=== PATIENT | male | born 1975 | race Caucasian/White ===

== ENCOUNTER → 2017-09-26 | Outpatient (REF) | payer BC ==
[2017-09-26 20:39] LABS: HEMATOCRIT 49.1 % (42.0-52.0); HEMOGLOBIN 16.7 g/dl (14.0-18.0); MEAN CORPUSCULAR HEMOGLOBIN 29.8 pg (27.0-33.0); MEAN CORPUSCULAR VOLUME 87.7 fl (80.0-96.0); PLATELET COUNT, AUTOMATED 187 10^3/uL (150-450); RED CELL DISTRIBUTION WIDTH 11.9 % (11.5-14.5); WHITE BLOOD COUNT 5.9 10^3/uL (4.0-10.0)
[2017-09-26 21:02] LABS: ALBUMIN 4.4 GM/DL (3.2-5.2); ALBUMIN/GLOBULIN RATIO 1.26 (1.00-1.93); ALKALINE PHOSPHATASE 69 U/L (45-117); ALT/SGPT 57 U/L (12-78); ANION GAP 5 MEQ/L (8-16); AST/SGOT 27 U/L (7-37); BILIRUBIN,TOTAL 1.8 MG/DL (0.2-1.0); BLOOD UREA NITROGEN 19 MG/DL (7-18); CALCIUM LEVEL 8.9 MG/DL (8.5-10.1); CARBON DIOXIDE LEVEL 32 MEQ/L (21-32); CHLORIDE LEVEL 105 MEQ/L (98-107); CHOLESTEROL LEVEL 226 MG/DL (<200); CHOLESTEROL RISK RATIO 7.062 (<5); CREATININE FOR GFR 1.02 MG/DL (0.70-1.30); GLOMERULAR FILTRATION RATE > 60.0 (>60); GLUCOSE, FASTING 82 MG/DL (70-105); HDL CHOLESTEROL 32 MG/DL (>40); LDL CHOLESTEROL 142.4 MG/DL (<100); NON-HDL-C 194 MG/DL; POTASSIUM SERUM 4.3 MEQ/L (3.5-5.1); RHEUMATOID FACTOR QUANT < 10.0 IU/ML (0-15.0); SODIUM LEVEL 142 MEQ/L (136-145); TOTAL PROTEIN 7.9 GM/DL (6.4-8.2); TRIGLYCERIDES LEVEL 258 MG/DL (<150)
[2017-09-26 21:08] LABS: ERYTHROCYTE SEDIMENTATION RATE 5 mm/hr (0-15)
[2017-09-30 00:07] LABS: ANTINUCLEAR ANTIBODIES DIRECT Negative (Negative); Lyme Disease IgG/IgM Antibodie <0.91 ISR (0.00-0.90); Lyme Disease IgM Ab Quantitati <0.80 index (0.00-0.79)
== END ==
LOC: M SFHCLERA 15:36
DX: M25.50 Pain in unspecified joint (principal); E78.2 Mixed hyperlipidemia
CPT/HCPCS: 80053

== ENCOUNTER → 2018-01-07 | Outpatient (REF) | payer BC, OTHER ==
[2018-01-07 16:57] LABS: ALBUMIN/GLOBULIN RATIO 1.14 (1.00-1.93); ALKALINE PHOSPHATASE 85 U/L (45-117); ALT/SGPT 77 U/L (12-78); ANION GAP 6 MEQ/L (8-16); AST/SGOT 28 U/L (7-37); BILIRUBIN,TOTAL 0.9 MG/DL (0.2-1.0); BLOOD UREA NITROGEN 13 MG/DL (7-18); CALCIUM LEVEL 8.5 MG/DL (8.5-10.1); CARBON DIOXIDE LEVEL 30 MEQ/L (21-32); CHLORIDE LEVEL 109 MEQ/L (98-107); CHOLESTEROL LEVEL 126 MG/DL (<200); CHOLESTEROL RISK RATIO 4.064 (<5); CREATININE FOR GFR 1.02 MG/DL (0.70-1.30); GLOMERULAR FILTRATION RATE > 60.0 (>60); GLUCOSE, FASTING 86 MG/DL (70-100); HDL CHOLESTEROL 31 MG/DL (>40); LDL CHOLESTEROL 71.4 MG/DL (<100); NON-HDL-C 95 MG/DL; POTASSIUM SERUM 4.2 MEQ/L (3.5-5.1); SODIUM LEVEL 145 MEQ/L (136-145); TOTAL PROTEIN 7.5 GM/DL (6.4-8.2); TRIGLYCERIDES LEVEL 118 MG/DL (<150)
== END ==
LOC: M SFHCLERA 11:51
DX: E78.2 Mixed hyperlipidemia (principal)
CPT/HCPCS: 80053

== ENCOUNTER → 2018-04-23 | Outpatient (CLI) | payer OTHER, BC ==
[2018-04-23 20:26] LABS: ALBUMIN 4.1 GM/DL (3.2-5.2); ALBUMIN/GLOBULIN RATIO 1.05 (1.00-1.93); ALKALINE PHOSPHATASE 87 U/L (45-117); ALT/SGPT 73 U/L (12-78); AST/SGOT 45 U/L (7-37); BILIRUBIN,DIRECT 0.3 MG/DL (0.0-0.2); BILIRUBIN,TOTAL 2.2 MG/DL (0.2-1.0); CHOLESTEROL LEVEL 149 MG/DL (<200); CHOLESTEROL RISK RATIO 4.806 (<5); HDL CHOLESTEROL 31 MG/DL (>40); LDL CHOLESTEROL 89.8 MG/DL (<100); NON-HDL-C 118 MG/DL; TRIGLYCERIDES LEVEL 141 MG/DL (<150)
== END ==
LOC: M LRY 14:40
DX: M25.552 Pain in left hip (principal); E78.2 Mixed hyperlipidemia
CPT/HCPCS: 80076

== ENCOUNTER → 2018-05-23 | Outpatient (CLI) | payer OTHER, BC | LOC: M RAD 13:15 | DX: M25.522 Pain in left elbow (principal) | CPT/HCPCS: 73221 ==

== ENCOUNTER → 2019-09-01 | Outpatient (REF) | payer OTHER ==
[2019-09-01 17:10] LABS: BASO % 0.6 % (0.0-1.0); EOS # 0.2 10^3/uL (0.0-0.5); EOS % 3.5 % (0.0-3.0); HEMATOCRIT 48.3 % (42.0-52.0); HEMOGLOBIN 16.2 g/dl (13.5-17.5); LYMPH # 1.4 10^3/uL (1.5-5.0); LYMPH % 29.1 % (24.0-44.0); MEAN CORPUSCULAR HEMOGLOBIN 29.3 pg (27.0-33.0); MEAN CORPUSCULAR HGB CONC 33.5 g/dl (32.0-36.5); MEAN CORPUSCULAR VOLUME 87.3 fl (80.0-96.0); MONO # 0.5 10^3/uL (0.0-0.8); MONO % 9.9 % (0.0-5.0); NEUTROPHILS # 2.7 10^3/uL (1.5-8.5); NEUTROPHILS % 56.3 % (36.0-66.0); PLATELET COUNT, AUTOMATED 178 10^3/uL (150-450); RED BLOOD COUNT 5.53 10^6/uL (4.30-6.10); WHITE BLOOD COUNT 4.9 10^3/uL (4.0-10.0)
[2019-09-01 21:51] LABS: ALT/SGPT 45 U/L (12-78); BILIRUBIN,TOTAL 1.2 MG/DL (0.2-1.0); BLOOD UREA NITROGEN 19 MG/DL (7-18); CALCIUM LEVEL 8.7 MG/DL (8.5-10.1); CARBON DIOXIDE LEVEL 29 MEQ/L (21-32); CHLORIDE LEVEL 107 MEQ/L (98-107); CHOLESTEROL LEVEL 177 MG/DL (<200); CHOLESTEROL RISK RATIO 6.103 (<5); CREATININE FOR GFR 1.12 MG/DL (0.70-1.30); GLOMERULAR FILTRATION RATE > 60.0 (>60); GLUCOSE, FASTING 95 MG/DL (70-100); HDL CHOLESTEROL 29 MG/DL (>40); LDL CHOLESTEROL 98 MG/DL (<100); NON-HDL-C 148 MG/DL; SODIUM LEVEL 140 MEQ/L (136-145); TOTAL PROTEIN 7.5 GM/DL (6.4-8.2); TRIGLYCERIDES LEVEL 251 MG/DL (<150)
== END ==
LOC: M SFHCLERA 11:00
PROVIDERS: ATTEND Family Medicine
DX: E78.2 Mixed hyperlipidemia (principal); R11.0 Nausea

== ENCOUNTER → 2021-01-23 | Outpatient (CLI) | payer OTHER | LOC: M SLEEP HO 12:22 | PROVIDERS: ATTEND Physician Assistant | DX: R40.0 Somnolence (principal) ==

== ENCOUNTER → 2021-01-24 | Outpatient (CLI) | payer OTHER ==
--- NOTE | 2021-01-24 09:56 | REP ---
INDICATION: NAUSEA/VOMITING COMPARISON: None. TECHNIQUE: Real time edwards scale ultrasound examination using curved array transducer. FINDINGS: Liver is heterogeneous and hyperechoic suggesting fatty infiltration with areas of focal fatty sparing. No focal hepatic lesion identified. Pancreas appears normal. The gallbladder is normal and without gallstones, wall thickening, or pericholecystic fluid. No biliary ductal dilatation is appreciated and the common bile duct measures 4.8 mm diameter. Right kidney is normal in reniform shape without hydronephrosis and measures 12.3 x 5.8 x 4.7 cm. No ascites in the visualized right upper quadrant. Visualized abdominal aorta appears normal. IMPRESSION: Hepatosteatosis. <Electronically signed by Shalom Medley > 01/24/21 [id number]
== END ==
LOC: M RAD 09:09
PROVIDERS: ATTEND Internal Medicine Gastroenterology
DX: R11.2 Nausea with vomiting, unspecified (principal)

== ENCOUNTER → 2021-06-06 | Outpatient (CLI) | payer OTHER ==
[~2021-06-06] MED LIST: ATOR1TAB21 PO; BUSP5TA PO; HYDR50TA70 PO; OMEP40CA4 PO; PROAAER10 INH; VITMTA PO
--- NOTE | 2021-06-06 11:47 | REP ---
INDICATION: OTH SPECIFIED DISEASES OF GALL BLADDER. COMPARISON: None. TECHNIQUE/RADIOTRACER AND DOSE: After the intravenous administration of 6.6 mCi of technetium 99 M Choletec hepatobiliary imaging was performed with gallbladder ejection fraction calculation. FINDINGS: There is symmetric distribution of the radiotracer throughout the hepatocytes. The gallbladder is visualized at 45 minutes. Biliary to bowel transit is within normal limits. The gallbladder ejection fraction calculation is 57% which is within normal limits. IMPRESSION: Within normal limits <Electronically signed by Alin Dinero > 06/06/21 [id number]
== END ==
LOC: M RAD 09:13
PROVIDERS: ATTEND Internal Medicine Gastroenterology
DX: K82.8 Other specified diseases of gallbladder (principal)
CPT/HCPCS: 78227; A9537

== ENCOUNTER → 2021-06-16 | Outpatient (CLI) | payer OTHER | LOC: M LABSMTC 10:06 | PROVIDERS: ATTEND Anesthesiology | DX: Z01.812 Encounter for preprocedural laboratory examination (principal); Z20.822 Contact with and (suspected) exposure to COVID-19 ==

== ENCOUNTER 2021-06-21 12:00 | Day surgery (SDC) | payer OTHER ==
[~2021-06-21] VITALS: Ht 180.3 cm; Wt 94.3 kg
[~2021-06-21 12:00] MED LIST changes: +LIDOCAINE 2% 100MG/5ML SDV (FOR ANES.) As Ordered ONE; +NS 1,000 ML IV ONE; +fentaNYL 100 MCG/2 ML INJECTION (J3010) As Ordered ONE; +propofoL 500 MG/50 ML VIAL As Ordered ONE
--- NOTE | 2021-06-21 13:47 | ROOR ---
Patient Name: Avinash Dinh Procedure Date: 06/21/2021 1:30 PM Date of : 1975 Age: 46 Room: [facility] Gender: Male Note Status: Finalized Procedure: Upper GI endoscopy Indications: Dyspepsia, Endoscopy to assess diarrhea in patient suspected of having disease of the small-bowel, Nausea Providers: Zack Villavicencio MD Referring MD: Sam Marcus DO Requesting Provider: Medicines: Monitored Anesthesia Care Complications: No immediate complications. Procedure: Pre-Anesthesia Assessment: - The heart rate, respiratory rate, oxygen saturations, blood pressure, adequacy of pulmonary ventilation, and response to care were monitored throughout the procedure. The Endoscope was introduced through the mouth, and advanced to the second part of duodenum. The upper GI endoscopy was accomplished without difficulty. The patient tolerated the procedure well. Findings: The examined esophagus was normal. Diffuse minimal inflammation characterized by erythema was found in the entire examined stomach. Biopsies were taken with a cold forceps for histology. Bilious fluid was found in the stomach. The examined duodenum was normal. Biopsies for histology were taken with a cold forceps for evaluation of celiac disease. Impression: - Normal esophagus. - Bilious gastric fluid. Mucosal changes suspicious for mild bile gastropathy. Biopsied. - Normal examined duodenum. Biopsied. Recommendation: - Use sucralfate tablets 1 gram PO BID to TID. - (the script was sent to your pharmacy on file) - Telephone endoscopist for pathology results in 2 weeks. Procedure Code(s): --- Professional --- 73345, Esophagogastroduodenoscopy, flexible, transoral; with biopsy, single or multiple Diagnosis Code(s): --- Professional --- R11.0, Nausea R19.7, Diarrhea, unspecified R10.13, Epigastric pain K31.89, Other diseases of stomach and duodenum CPT copyright 2019 [employer]. All rights reserved. The codes documented in this report are preliminary and upon manager advanced review may be revised to meet current compliance requirements. Zack Villavicencio MD Zack Villavicencio MD 06/21/2021 1:47:20 PM Electronically signed by Zack Villavicencio MD Number of Addenda: 0 Note Initiated On: 06/21/2021 1:30 PM Estimated Blood Loss: Estimated blood loss: none.
--- NOTE | 2021-06-21 14:05 | ROOR ---
Patient Name: Avinash Dinh Procedure Date: 06/21/2021 1:30 PM Date of : 1975 Age: 46 Room: [facility] Gender: Male Note Status: Finalized Procedure: Colonoscopy Indications: Suspected irritable bowel syndrome, Irritable bowel syndrome with diarrhea, Change in bowel habits Providers: Zack Villavicencio MD Referring MD: Sam Marcus DO Requesting Provider: Medicines: Monitored Anesthesia Care Complications: No immediate complications. Procedure: Pre-Anesthesia Assessment: - The heart rate, respiratory rate, oxygen saturations, blood pressure, adequacy of pulmonary ventilation, and response to care were monitored throughout the procedure. The Colonoscope was introduced through the anus and advanced to 10 cm into the ileum. The colonoscopy was performed without difficulty. The patient tolerated the procedure well. The quality of the bowel preparation was good. Findings: The perianal and digital rectal examinations were normal. A diminutive polyp was found in the splenic flexure. The polyp was sessile. The polyp was removed with a jumbo cold forceps. Resection and retrieval were complete. Retroflexion in the right colon was performed. The exam was otherwise normal throughout the examined colon. The terminal ileum appeared normal. Biopsies for histology were taken with a cold forceps from the entire colon for evaluation of microscopic colitis. Impression: - One diminutive polyp at the splenic flexure, removed with a jumbo cold forceps. Resected and retrieved. - The colon is otherwise normal. - The examined portion of the ileum was normal. - Biopsies were taken with a cold forceps from the entire colon for evaluation of microscopic colitis. - (Irritable Bowel Syndrome/IBS suspected.) Recommendation: - Telephone endoscopist for pathology results in 2 weeks. - Lactose free diet. - Use fiber, for example Citrucel, Fibercon, Konsyl or Metamucil. - Repeat colonoscopy in 5 years for surveillance. - Use Bentyl (dicyclomine) 10 mg PO Q 4-6 hrs PRN 30 min AC. - (the script was sent to your pharmacy on file) Procedure Code(s): --- Professional --- 49825, Colonoscopy, flexible; with biopsy, single or multiple Diagnosis Code(s): --- Professional --- R19.4, Change in bowel habit K58.0, Irritable bowel syndrome with diarrhea K63.5, Polyp of colon CPT copyright 2019 [employer]. All rights reserved. The codes documented in this report are preliminary and upon customer professional review may be revised to meet current compliance requirements. Zack Villavicencio MD Zack Villavicencio MD 06/21/2021 2:04:26 PM Electronically signed by Zack Villavicencio MD Number of Addenda: 0 Note Initiated On: 06/21/2021 1:30 PM Estimated Blood Loss: Estimated blood loss: none.
[2021-06-21 14:20] VITALS: BP 138/82
== END 2021-06-21 14:44 | disposition home or self-care (01) ==
LOC: M OPP 12:00
PROVIDERS: ATTEND Internal Medicine Gastroenterology
DX: K63.5 Polyp of colon (principal); K58.0 Irritable bowel syndrome with diarrhea; R19.4 Change in bowel habit; K31.89 Other diseases of stomach and duodenum; R19.7 Diarrhea, unspecified; R11.0 Nausea; R10.13 Epigastric pain; Z79.899 Other long term (current) drug therapy; Z88.1 Allergy status to other antibiotic agents
CPT/HCPCS: 43239; 45380; 88305; J3010

== ENCOUNTER 2024-11-04 09:09 | Day surgery (SDC) | payer OTHER ==
[~2024-11-04] VITALS: Ht 180.3 cm; Wt 91.8 kg
[~2024-11-04 09:09] MED LIST changes: +AMLO1TAB24 PO; +ASPI-226 PO; +NORV5TAB PO; -NS 1,000 ML IV ONE; +POTA-149 PO; +POTA99CA2 PO; +THERTAB52 PO; +VENTAER INH; +VITA-243 PO; +VITATAB73 PO; +[UNRECOGNIZED DRUG - OTHER] PO; -fentaNYL 100 MCG/2 ML INJECTION (J3010) As Ordered ONE; +fentaNYL 100 MCG/2 ML INJECTION As Ordered ONE; +propofoL 200 MG/20 ML VIAL As Ordered ONE; -propofoL 500 MG/50 ML VIAL As Ordered ONE
[2024-11-04] MEDS ORDERED: VIT1TAB.12 PO (09:28)
[2024-11-04 10:47] VITALS: TEMP 97.8
[2024-11-04 11:03] VITALS: BP 135/78; O2SAT 98
[2024-11-04] MEDS ORDERED: GLYCOPYRROLATE INJ 0.2 MG/ML 2 ML VIAL As Ordered ONE (12:16)
== END 2024-11-04 11:08 | disposition home or self-care (01) ==
LOC: M OPP 09:09
PROVIDERS: ATTEND Internal Medicine Gastroenterology
DX: K22.89 Other specified disease of esophagus (principal); R13.10 Dysphagia, unspecified; R11.0 Nausea; G47.30 Sleep apnea, unspecified; Z88.8 Allergy status to other drugs, medicaments and biological substances; Z91.048 Other nonmedicinal substance allergy status; Z79.899 Other long term (current) drug therapy; J45.909 Unspecified asthma, uncomplicated
CPT/HCPCS: 43239; 43450; 88305; J1596; J3010